=== PATIENT | female | born 1930 | race Caucasian/White ===

== ENCOUNTER 2019-01-28 13:04 | Emergency (ER) | payer MEDICARE, OTHER ==
[~2019-01-28] VITALS: Ht 147.3 cm; Wt 55.0 kg
[~2019-01-28 13:04] MED LIST: ACET-2047 PO; ADV25050 INH; AMLO5TAB4 PO; ARIP5TAB14 PO; ASPI-1046 PO; ASPI-817 PO; CARV6.25 PO; CARV6.2579 PO; CLOP75TA27 PO; DEXL60CA2 PO; ERGO500013 PO; FURO40TA4 PO; LIPA1CAP6 PO; LISI40TA3 PO; LOSA100T15 PO; LUBI8CAP4 PO; MEMA28CA PO; OLOP2.5D BOTH EYES; SENN-120 PO; SIMV20TA PO; SPIR25TA PO; TRAM50TA2 PO; TRIA15CR55 TOP
[2019-01-28 13:12] VITALS: Ht 147.3 cm; Wt 55.0 kg
[2019-01-28] MEDS ORDERED: SOD CHLORIDE 0.9% 500 ML IV STA (14:12)
[2019-01-28] MEDS ORDERED: NICARDipine HCL 30 MG CAPSULE PO ONE (14:30)
--- NOTE | 2019-01-28 14:50 | ERD ---
ER Documentation Chief Complaint Chief Complaint LEFT EYE SWELLING/PAIN - DUE TO FALL HPI 88-year-old female presenting after a ground-level fall with left facial injury and complaints of pain. Per family, the patient was feeling dizzy when she was going to the bathroom and had a ground-level fall. They are not sure if she lost consciousness. They state that she did lose a lot of blood from a laceration next to her left orbit. She is on aspirin but they are unsure of other blood thinners. Patient also complains of left-sided mild rib pain that is nonradiating, 4 out of 10, with no alleviating or exacerbating factors. She denies any headache at this time. She only complains of pain around her left eye. Her left eye is swollen shut and she is unsure of any vision disturbance. Per family, she is acting normally and answering questions normally. ROS All systems reviewed and are negative except as per history of present illness. Medications Home Meds Reported Medications Sennosides* (Senna Lax*) 8.6 Mg Tablet, 1 TAB PO Q8H, TAB 01/28/19 Aspirin* (Aspirin* EC) 81 Mg Tablet.dr, 81 MG PO DAILY, TAB 01/28/19 Simvastatin* (Zocor*) 20 Mg Tablet, 20 MG PO QHS, #30 TAB 01/28/19 Furosemide* (Furosemide*) 40 Mg Tablet, 40 MG PO DAILY, TAB 01/28/19 Ergocalciferol (Vitamin D2) (VITAMIN D2) 50,000 Unit Capsule, 31134 UNIT PO Q7D, CAP 01/28/19 Discontinued Reported Medications Salmeterol Xinaf/Fluticasone* (Advair*) 250-50 Diskus Inhaler, 1 INH INH BID, INH 07/21/14 Aspirin* (Aspirin* (EC)) 81 Mg Tablet.dr, 81 MG PO DAILY, TAB 07/21/14 Aripiprazole* (Abilify*) 5 Mg Tab, 5 MG PO DAILY, TAB 07/21/14 Lisinopril* (Lisinopril*) 40 Mg Tablet, 40 MG PO DAILY, TAB 07/21/14 Amlodipine Besylate* (Norvasc*) 5 Mg Tablet, 5 MG PO DAILY, TAB 07/21/14 Tramadol HCl (Tramadol HCl) 50 Mg Tab, 50 MG PO DAILY PRN for PAIN, TAB 07/21/14 Simvastatin* (Zocor*) 20 Mg Tablet, 20 MG PO HS, TAB 07/21/14 Olopatadine* (Pataday*) 0.2% - 2.5 Ml Drops, 1 DROP BOTH EYES DAILY, EA 07/21/14 Carvedilol* (Coreg*) 6.25 Mg Tablet, 6.25 MG PO BID, TAB 07/21/14 Clopidogrel Bisulfate (Clopidogrel) 75 Mg Tablet, 75 MG PO DAILY, TAB 07/21/14 Dexlansoprazole (Dexilant) 60 Mg Cap.drJasmynemp, 60 MG PO DAILY, CAP 07/21/14 Memantine* (Namenda* XR) 28 Mg Cap.spr.24, 28 MG PO DAILY, TAB 07/21/14 Allergies Allergies: Coded Allergies: No Known Allergy (Unverified , 01/28/19) PMhx/Soc History of Surgery: Yes (Right lower extremity surgery) Hx Neurological Disorder: Yes (Mild dementia) Hx Cardiac Disorders: Yes (HTN) Hx Psychiatric Problems: Yes (DEPRESSION) Hx Miscellaneous Medical Probl: Yes (HIGH CHOLESTEROL) Hx Alcohol Use: No Hx Substance Use: No Hx Tobacco Use: No FmHx Family History: No diabetes Physical Exam Vitals Vital Signs Date Temp Pulse Resp B/P (MAP) Pulse Ox O2 O2 Flow FiO2 Time Delivery Rate 01/28/19 98.7 90 17 135/55 97 Room Air 15:46 (81) 01/28/19 98.7 87 20 213/68 96 Room Air 15:27 (116) 01/28/19 98.7 76 20 225/91 96 13:12 (135) Physical Exam INITIAL VITAL SIGNS: Reviewed by me GENERAL: Well developed, well nourished. HEAD: Left periorbital significant swelling with ecchymoses. Periorbital tenderness to palpation. EYES: Right eye with normal conjunctiva, pupil round and reactive to light. Left periorbital ecchymosis with lids significantly edematous, unable to open lids to do a thorough exam. There is chemosis on limited exam. ENT: Mild swelling around the nasal bridge. Nose non-tender. No septal h ematoma. Nasopharynx and oropharynx clear. No dental, lip, or tongue injury NECK: No cervical spine TTP CHEST WALL: No crepitus. Left sided lateral chest wall tenderness to palpation. No flail chest. RESPIRATORY: Clear to auscultation bilaterally. No increased work of breathing. CV: Regular rate and rhythm. Mild systolic and diastolic murmur noted on exam maximally at the right upper parasternal border. Cap refill <2sec. 2+ Radial and 2+ dorsalis pedis pulses. ABDOMEN: Soft, non-distended, non-tender. No guarding or rebound. Normal active bowel sounds. BACK: No thoracic or lumbar spine TTP. No CVA tenderness. EXTREMITIES: Normal to inspection and palpation. No deformities seen. Full ROM in extremities. SKIN: Warm, dry, pink. NEUROLOGIC: A&Ox2. No facial asymmetry. Motor and sensory function intact to all 4 extremities. Normal steady gait Result Diagram: 01/28/19 1437 01/28/19 1437 Results 24 hrs Laboratory Tests Test 01/28/19 14:37 White Blood Count 8.4 10^3/ul Red Blood Count 3.95 10^6/ul Hemoglobin 12.3 g/dl Hematocrit 37.9 % Mean Corpuscular Volume 95.9 fl Mean Corpuscular Hemoglobin 31.1 pg Mean Corpuscular Hemoglobin Concent 32.5 g/dl Red Cell Distribution Width 14.7 % Platelet Count 138 10^3/UL Mean Platelet Volume 10.4 fl Immature Granulocytes % 0.400 % Neutrophils % 64.5 % Lymphocytes % 13.9 % Monocytes % 7.2 % Eosinophils % 12.9 % Basophils % 1.1 % Nucleated Red Blood Cells % 0.0 /100WBC Immature Granulocytes # 0.030 10^3/ul Neutrophils # 5.4 10^3/ul Lymphocytes # 1.2 10^3/ul Monocytes # 0.6 10^3/ul Eosinophils # 1.1 10^3/ul Basophils # 0.1 10^3/ul Nucleated Red Blood Cells # 0.0 10^3/ul Prothrombin Time 13.8 Sec Prothrombin Time Ratio 1.1 INR International Normalized Ratio 1.05 Activated Partial Thromboplast Time 32.0 Sec Sodium Level 139 mmol/L Potassium Level 3.4 mmol/L Chloride Level 98 mmol/L Carbon Dioxide Level 32 mmol/L Anion Gap 9 Blood Urea Nitrogen 23 mg/dl Creatinine 0.90 mg/dl Est Glomerular Filtrat Rate mL/min mL/min Glucose Level 131 mg/dl Calcium Level 10.8 mg/dl Current Medications Medications Dose Sig/Dale Start Time Status Last (Trade) Ordered Route PRN Stop Time Admin Dose Reason Admin Sodium 500 ml @ Q1H STAT 01/28/19 DC 01/28/19 Chloride 500 mls/hr IV 14:12 15:24 01/28/19 15:11 Nicardipine 30 mg ONCE ONCE 01/28/19 DC 01/28/19 HCl PO 14:30 14:46 (Cardene) 01/28/19 14:31 Enalaprilat 0.625 mg ONCE ONCE 01/28/19 DC (Vasotec Iv) IV 15:00 01/28/19 15:12 Nicardipine 200 ml @ TITRATE IV 01/28/19 01/28/19 HCl 50 mls/hr 15:30 15:35 Hydralazine 10 mg ONCE ONCE 01/28/19 DC 01/28/19 HCl IV 15:30 15:28 (Apresoline) 01/28/19 15:31 Hydralazine 20 mg STK-MED 01/28/19 DC HCl ONCE .ROUTE 15:16 (Apresoline) 01/28/19 15:17 100 ml @ ONCE ONCE 01/28/19 01/28/19 Levetiracetam 400 mls/hr IVPB 16:00 15:54 01/28/19 16:14 Procedures/MDM EMERGENT LABS AND DIAGNOSTIC STUDIES: Lab Results above were reviewed and interpreted by me. CBC: Mild thrombocytopenia. No anemia or evidence of infection BMP: Borderline hypokalemia. No evidence of clinically significant electrolyte abnormality, acidosis, renal failure, hypoglycemia Troponin within normal limits, not indicative of cardiac ischemia 12-lead EKG was interpreted by Xiang Joy MD: Sinus rhythm with first-degree AV block at 84 bpm LVH with repolarization abnormality No acute ST or T wave changes suggestive of acute ischemia or STEMI. Radiology Results as interpreted by Radiology below were reviewed by Val Joy MD: CT head: Extensive left facial and periorbital soft tissue hematoma. There are bilateral results in subdural hematomas measuring up to 9 mm each. There is also an intraparenchymal frontal hematoma, present. At this time no evidence of vasogenic edema is seen. 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 There are multiple left-sided facial fractures including the lateral orbit, inferior lateral orbit extending into the proximal zygomatic arch as well as a minimally depressed orbital floor fracture. The inferior rectus muscle is normal in appearance however would clinically correlate for impingement. In addition there is a nondisplaced fracture through the left pterygoid plate. Chest x-ray: Prominent bilateral interstitial markings may represent chronic lung changes. No pulmonary consolidations. Initial Nursing notes reviewed. Previous Medical Records requested via the Electronic Health Record. EMERGENCY DEPARTMENT COURSE / MEDICAL DECISION MAKING: Patient is presenting after a ground-level fall with evidence of significant facial trauma on exam. She was noted to be significantly hypertensive with a systolic blood pressure in the 200s. She was initially treated with nicardipine and work-up was initiated. Her CT did show evidence of bilateral acute traumatic subdural hemorrhages with a left frontal lobe parenchymal hemorrhage. After this was identified, she was treated with IV enalapril and hydralazine, then started on nicardipine drip to maintain her systolic blood pressure below 140. I spoke with the neurosurgeon on-call, Dr. De Jesus, who recommended a platelet function assay as well as IV Keppra for seizure prophylaxis. He did not recommend platelets as of yet. With the IV medications, patient's blood pressure quickly dropped below 140. Patient's facial CT showed evidence of multiple facial fractures. At this point, she does have multisystem trauma and will require multiple specialties to evaluate her including ophthalmology and neurosurgery in addition to facial trauma. I spoke with [facility] trauma surgeon, Dr. Dubon , who has accepted the patient for transfer to their facility for higher level of care. Family is amenable with this plan. Dr. Storey was notified of the transfer. Critical Care Time: 50 minutes Treatments/Evaluations: Close monitoring and treatment of unstable vital signs, cardiorespiratory, and neurologic status, while maintaining tight balance of fluid, respiratory, and cardiac interventions. This time includes discussing the case with the patient and the patients family. This time does not include all procedures stated elsewhere in this record. This time also includes reviewing old records, labs and radiological studies. This time includes examining and re-examining the patient. Additionally, this time also includes arranging care with admitting and consulting physicians. Departure Diagnosis: Primary Impression: Subdural hemorrhage, traumatic Encounter type: initial encounter Loss of consciousness presence/duration: without LOC Qualified Codes: S06.5X0A - Traumatic subdural hemorrhage without loss of consciousness, initial encounter Additional Impressions: Periorbital hematoma of left eye Orbital floor fracture Encounter type: initial encounter Fracture type: closed Laterality: left Qualified Codes: S02.32XA - Fracture of orbital floor, left side, initial encounter for closed fracture Facial bone fracture Encounter type: initial encounter Fracture type: closed Laterality: left Hypertensive crisis without congestive heart failure Dizziness Condition: Serious FREDERIC JOY MD Jan 28, 2019 14:50
[2019-01-28] MEDS ORDERED: ENALAPRILAT 1.25 MG INJ IV ONE (15:00)
[2019-01-28] MEDS ORDERED: hydrALAzine 20 MG INJ ONE (15:16)
[2019-01-28] MEDS ORDERED: hydrALAzine 20 MG INJ IV ONE (15:30)
[2019-01-28] MEDS ORDERED: niCARdipine-NS 0.1MG/ML DRIP 200 ML IV SCH (15:30)
[2019-01-28] MEDS ORDERED: LEVETIRACETAM 1000 MG (PMX) 100 ML IVPB ONE (16:00)
[2019-01-28 16:06] VITALS: BP 136/51; PULSE 85; RESP 17
== END 2019-01-28 16:47 | disposition short-term general hospital (02) ==
LOC: E/R 13:04
DX: S06.5X0A Traumatic subdural hemorrhage without loss of consciousness, initial encounter (principal); I10 Essential (primary) hypertension; S02.32XA Fracture of orbital floor, left side, initial encounter for closed fracture; S02.92XA Unspecified fracture of facial bones, initial encounter for closed fracture; I16.9 Hypertensive crisis, unspecified; S00.12XA Contusion of left eyelid and periocular area, initial encounter; W18.39XA Other fall on same level, initial encounter; Y92.002 Bathroom of unspecified non-institutional (private) residence as the place of occurrence of the external cause; Z79.82 Long term (current) use of aspirin
CPT/HCPCS: 36415; 70450; 70486; 71045; 80048; 84484; 85025; 85576; 85610; 85730; 93005; 96374; 96375; 99285; J0360; J1953; J7040